=== PATIENT | female | born 1960 | race Two or more races ===

== ENCOUNTER 2024-01-04 12:32 | Emergency (ER) | payer OTHER ==
[~2024-01-04] VITALS: Ht 162.6 cm; Wt 66.0 kg
[2024-01-04] MEDS: LORazepam 2MG/ML-1ML VIAL IV ONE (12:45)
[2024-01-04] MEDS: SODIUM CHLORIDE 0.9% 500 ML IV ONE (12:45)
[2024-01-04 12:58] VITALS: BP 175/84; PULSE 127; RESP 15; TEMP 98.4
[2024-01-04 13:00] VITALS: O2SAT 100
[2024-01-04] MEDS: methylPREDNISolone SOD SUCC 125 MG/2 ML VL IV ONE (13:00)
[2024-01-04 13:42] LABS: Basophils # (auto) 0 10 ^3/uL (0-0.2); Basophils % (auto) 0.3 % (0.0-2.0); Eosinophils # (auto) 0 10 ^3/uL (0-0.8); Eosinophils % (auto) 0.2 % (0.0-7.0); Hemoglobin 15.3 g/dL (12.2-16.2); Mean Corpuscular Hemoglobin 36.3 pg (28.0-32.0); Monocytes # (auto) 0.5 10 ^3/uL (0-1.3); Neutrophils # (auto) 7.6 10 ^3/uL (1.6-8.6); Red Blood Cells 4.22 10^6/uL (4.0-5.20); Red Cell Distribution Width 13.5 % (11.8-14.3)
[2024-01-04 13:43] LABS: Hematocrit 44.4 % (36.0-46.0); Lymphocytes % (auto) 10.8 % (10.0-50.0); Mean Corpuscular Hgb Conc. 34.5 g/dL (32.0-36.0); Mean Corpuscular Volume 105.2 fL (80.0-100.0); Monocytes % (auto) 5.5 % (0.0-12.0); Neutrophils % (auto) 83.2 % (37.0-80.0); Nucleated Red Blood Cells % 0.2 %; Platelet Count (auto) 185 10^3/uL (140-450); White Blood Cell 9.2 10^3/uL (4.4-10.8)
[2024-01-04 13:47] LABS: Chloride 105 mmol/L (98-107); Potassium 3.6 mmol/L (3.5-5.1); Sodium 135 mmol/L (136-145)
[2024-01-04 13:48] LABS: Anion Gap 12 (5-15); Calcium 9.4 mg/dL (8.7-10.4); Carbon Dioxide 18 mmol/L (20-31)
[2024-01-04 13:53] LABS: BUN/Creatinine Ratio 13.9 (10.0-20.0); Blood Urea Nitrogen 10 mg/dL (9-23); Glucose 116 mg/dL (74-106)
[2024-01-04] MEDS ORDERED: METH4PAK PO (15:06)
[2024-01-04] MEDS ORDERED: DIPH25CA66 PO (15:06)
== END 2024-01-04 15:39 | disposition home or self-care (01) ==
LOC: ER 12:32 → EDBD 12:32 → ER 15:39
DX: T78.40XA Allergy, unspecified, initial encounter (principal); Z88.2 Allergy status to sulfonamides; Z88.1 Allergy status to other antibiotic agents; Z90.49 Acquired absence of other specified parts of digestive tract; Z90.89 Acquired absence of other organs; Z90.710 Acquired absence of both cervix and uterus; X58.XXXA Exposure to other specified factors, initial encounter; Y93.89 Activity, other specified; Y92.89 Other specified places as the place of occurrence of the external cause; Y99.8 Other external cause status
CPT/HCPCS: 36415; 80048; 85025; 96361; 96374; 99283; J2060; J2919; J7040